=== PATIENT | male | born 1945 | race Caucasian/White ===

== ENCOUNTER 2018-03-16 13:00 | Inpatient (IN) | payer MEDICARE, BC ==
--- NOTE | 2018-03-16 07:27 | HP ---
NEUROSURGERY HISTORY AND PHYSICAL HISTORY OF PRESENT ILLNESS: This is a very pleasant 72-year-old male with past medical history of cervical fracture and spinal cord injury in [birth year] who reports to our office with left arm pain and weakness. The patient states that following his spinal cord injury, he was paraplegic for a few weeks. He regained full use of his right side to about 30% deficit on his left. The patient states that about a year ago, he had been having a lot of neck pain for which his primary care ordered a cervical MRI in 12/2016. The patient states that the neck pain got better. However, in the last month, he has had progressive pain, weakness and numbness in the left arm. The patient states that his arm feels like fire ants are biting him all over. The patient is left handed and unable to sign checks, cut his food, or button his shirt. Patient is in physical therapy; however, he does not think that it is helping much. He has also had STEVE with little benefit or relief. REVIEW OF SYSTEMS: A 10-point review of systems has been completed and is negative other than stated in the above HPI. PAST MEDICAL HISTORY: Kidney stones, GERD, hypertension. PAST SURGICAL HISTORY: Lumbar surgery L5-S1 by Dr. Barajas in 2002, C5 fracture , spinal cord injury in 1960, colon polyps 2014. FAMILY HISTORY: Father is , diagnosed with heart disease and stroke. Mother is , diagnosed with heart disease. Siblings are alive. SOCIAL HISTORY: Patient is a nonsmoker, drinks occasional alcohol. Does not use any other illicit drugs. Drinks caffeine on a daily basis. Retired and is single. MEDICATIONS: Metoprolol, omeprazole, Advil, simvastatin, hydrochlorothiazide, potassium, Omnigy, Lyrica, naproxen, hydrocodone/acetaminophen. ALLERGIES: No known drug allergies. PHYSICAL EXAMINATION: CONSTITUTIONAL: Patient is alert and oriented, nontoxic, alert and oriented to person, place, and time. HEENT: Head is normocephalic, atraumatic. Pupils are equal, round, reactive to light. Vision is intact. Hearing is intact. Moist mucous membranes. NECK: Soft, supple, no masses noted. Range of motion is intact, nonpainful. NEUROLOGIC: Patient is awake, alert, oriented to person, place and time. Memory attention, fund of knowledge and language are all normal. Cranial nerves II-XII are intact. RESPIRATORY: Regular work of breathing room air. CARDIAC: Regular rate and rhythm, normal S1, S2. NEUROLOGIC: Gait and station are normal. Motor exam: Left deltoid. Normal left biceps and normal left triceps 3+ to 4-/5, left wrist extension 4-/5, left finger extension 3+/5, left intraosseous 3-/5, improvement from prior exam. Sensory exam:sensory dysesrhesias in the arm are gone, touch appreciated in C5- T1. Reflex exam; reflexes are less in the left bicep, tricep, brachioradialis then the right. Positive Babinskis. IMAGING DATA: MRI old cord injury from C4-C5 and C5-C6 stenosis at C3-4, C5-6 with kyphosis, foraminal disease of the left C6-C7 as well as C7-T1, open foramen flexion and extension. X-rays C5-6 move with a bit of flexion and extension. ASSESSMENT AND PLAN: Cervical spinal disorder with myelopathy. Dr. Vallecillo has offered surgery. There is significant cord compression over 3 segments and foraminal disease around the left C7 nerve root. He has offered laminectomy C3- C7, ACDF through C3-C7 with posterior fusion at C3-C7. We have obtained consent and discussed the indications, risks, benefits, alternatives, and expected results from surgery. The risks discussed included, but were not limited to bleeding, infection, CSF leak, nerve damage, weakness, swallowing trouble, feeding tube placement, tracheal injury, esophageal injury, vocal cord injury, spinal cord injury, incontinence, paralysis, ventilator dependent, wheelchair dependent, stroke, loss of vision, carotid artery injury, jugular vein injury, hardware misplacement, cardiopulmonary complications, anesthesia complications, or . Long-term complications include but were not limited to hardware failure and degradation of surrounding discs. The patient states he understands these risks and is willing to proceed with surgery. MELISSA
[2018-03-16 14:05] VITALS: BMI 29.0
[2018-03-19] MEDS ORDERED: CEFAZOLIN/Water 2 GM/20 ML SYRINGE ONE (06:08)
[2018-03-19] MEDS ORDERED: Thrombin 5000 UNITS/5 ML VIAL ONE ×2 (06:17→14:30)
[2018-03-19] MEDS ORDERED: Bacitracin Zinc Ointment 30 gm TUBE ONE (06:17)
[2018-03-19] MEDS ORDERED: Bupivacaine HCl 0.5%/Epinephrine 1:200,000/PF 30 ml Vial ONE (06:17)
[2018-03-19] MEDS ORDERED: Sodium Chloride 0.9% 30 ML ONE (06:17)
[2018-03-19] MEDS ORDERED: Fentanyl 250 MCG/5 ML VIAL ONE (07:07)
[2018-03-19] MEDS ORDERED: Fentanyl 100 MCG/2 ML VIAL ONE ×6 (08:07→17:38)
[2018-03-19] MEDS ORDERED: PHENYLEPHRINE-NS 100 MCG/ML 10 ML SYRINGE ONE ×5 (08:19→16:24)
[2018-03-19] MEDS ORDERED: Rocuronium Bromide 50 MG/5 ML VIAL ONE ×3 (08:34→12:33)
[2018-03-19] MEDS ORDERED: SUGAMMADEX SODIUM 500 MG/5 ML VIAL ONE (12:33)
[2018-03-19] MEDS ORDERED: Ondansetron PF 4 MG/2 ML Vial ONE ×2 (14:30→17:54)
[2018-03-19] MEDS ORDERED: Glycopyrrolate 0.2 MG/ML 5 ML SYRINGE ONE (14:30)
[2018-03-19] MEDS ORDERED: Calcium Chloride 1 GM/10 ML Abboject SYRINGE ONE (14:30)
[2018-03-19] MEDS ORDERED: PROPOFOL 200 MG/20 ML VIAL ONE (14:30)
[2018-03-19] MEDS ORDERED: ePHEDrine/0.9% NaCl/PF SYRINGE 50 mg/10 ml ONE (14:30)
[2018-03-19] MEDS ORDERED: Lidocaine 1% PF 5 ML VIAL ONE (14:30)
[2018-03-19] MEDS ORDERED: CEFAZOLIN 1 GM VIAL ONE (16:29)
[2018-03-19] MEDS ORDERED: Bisacodyl 10 MG SUPP PR PRN (16:52)
[2018-03-19] MEDS ORDERED: Acetaminophen 325 MG TAB PO PRN (16:52)
[2018-03-19] MEDS ORDERED: Promethazine HCl 25 MG/ML VIAL IM PRN ×2 (16:52→17:20)
[2018-03-19] MEDS ORDERED: Ondansetron PF 4 MG/2 ML Vial IVP PRN (16:52)
[2018-03-19] MEDS ORDERED: Fleet Enema 133 ML BOT PR PRN (16:52)
[2018-03-19] MEDS ORDERED: Promethazine 25 MG TAB PO PRN (16:52)
[2018-03-19] MEDS ORDERED: diphenhydrAMINE 50 MG/ML VIAL IVP PRN (16:52)
[2018-03-19] MEDS ORDERED: Mag-Al 1200 mg/1200 mg/30 ML UDCUP PO PRN (16:52)
[2018-03-19] MEDS ORDERED: tiZANidine HCl 4 MG TAB PO PRN (16:52)
[2018-03-19] MEDS ORDERED: diphenhydrAMINE 25 MG CAP PO PRN (16:52)
[2018-03-19] MEDS ORDERED: Zolpidem Tartrate 5 MG TAB PO PRN (16:52)
[2018-03-19] MEDS ORDERED: Milk Of Magnesia 30 ML UDCUP PO PRN (16:52)
[2018-03-19] MEDS ORDERED: Acetaminophen 650 MG Suppository PR PRN (16:52)
[2018-03-19] MEDS ORDERED: Labetalol HCl 100 MG/20 ML VIAL ONE (17:15)
[2018-03-19] MEDS ORDERED: PACU-Morphine 4MG/ML VIAL SLOW IVP PRN (17:20)
[2018-03-19] MEDS ORDERED: Ondansetron HCl/PF 4 MG/2 ML Vial IVP PRN (17:20)
[2018-03-19] MEDS ORDERED: Promethazine HCl 25 MG/ML VIAL SLOW IVP PRN (17:20)
[2018-03-19] MEDS ORDERED: Labetalol HCl 100 MG/20 ML VIAL SLOW IVP PRN (17:30)
[2018-03-19] MEDS ORDERED: CEFAZOLIN/Water 2 GM/20 ML SYRINGE SLOW IVP SCH (18:00)
[2018-03-19] MEDS: Sodium Chloride 0.9% 1,000 ML IV SCH (18:51)
[2018-03-19] MEDS: Acetaminophen/Codeine 30-300mg Tablet PO PRN (20:39)
[2018-03-19] MEDS: Cyclobenzaprine 10 MG TAB PO PRN (20:39)
[2018-03-19] MEDS: Ibuprofen 800 MG TAB PO PRN (20:39)
--- NOTE | 2018-03-19 20:55 | OP ---
DATE OF PROCEDURE: 03/19/2018 SURGEON: Timothy Vallecillo MD LABORATORY ASSOCIATE: Jaelyn Jaime PA-C PREOPERATIVE INDICATION: Prevent further neurological deterioration. PREOPERATIVE DIAGNOSES: Cervical spondylitic myelopathy, multilevel cervical intervertebral disk dis ease, and spinal stenosis with T2 signal change in the cord. POSTOPERATIVE DIAGNOSES: Cervical spondylitic myelopathy, multilevel cervical intervertebral disk d isease, and spinal stenosis with T2 signal change in the cord. PROCEDURES PERFORMED: 1. Posterior decompressive laminectomy with medial facetectomy and foraminotomy at C3, C4, C5, C6, a nd C7. 2. Anterior cervical diskectomy; intervertebral arthrodesis; placement of intervertebral biomechanic al device and anterior cervical plating at C3-C4, C4-C5, C5-C6, C6-C7; local morselized autograft; mo rselized allograft; and operating microscope. 3. Posterolateral arthrodesis with lateral mass screw and dar instrumentation at C3-C4, C4-C5, C5-C6 , and C6-C7; local morselized autograft; morselized allograft. PREOPERATIVE MEDICATION: Ancef 2 grams IV. The drain was number 2. The drain type was 10-Australian Rodrigo. DESCRIPTION OF PROCEDURE: OPERATION #1: The patient was brought to the operating room. Keeping the neck in normal anatomic al ignment, general endotracheal anesthesia was induced. Chavira effie headholder was attached to the patient's head and the patient was carefully rolled into the prone position on gel-filled chest roll s. The head was immobilized with a Chavira effie attachment for the operating table and a lateral fluoro radiograph was used to plan our incision. Hair was removed from the back of the head and neck with electric clippers. We marked out our incision. The neck was sterilely prepped and draped. We opened with a 10-blade knife and controlled bleeding with bipolar and monopolar cautery. We used mo nopolar cautery to dissect through subcutaneous tissues to the ligamentum nuchae. We incised the fas alfredo in the midline and we reflected paraspinal muscles off the spinous process and lamina of C2, C3, C4, C5, C6, and C7. We took a lateral fluoro radiograph to confirm the levels upon which we were ope rating. We then brought a high-speed drill into the field and then using a jenifer bit, we thinned the lamina e from C3 to C7 bilaterally. Using a 1-mm Kerrison rongeur, we performed laminotomy on either side. When we were done, we removed the lamina and spinous process of C3, C4, C5, and C6 as a single unit. We controlled epidural bleeding with gentle bipolar cautery. We then turned our attention to the s uperior portion of C7. Here, we used Kerrison rongeurs to fashion laminectomy of the superior 7 mm o f the lamina. We then widened our laminectomy defect at each of the interspaces by performing medial facetectomies and small foraminotomies over the nerves. We irrigated it copiously with bacitracin i rrigation. We chose entry points for our lateral mass screws and we drilled out our entry points. W e aimed a high-speed drill superiorly and laterally in the lateral mass at C3, C4, C5, C6, and C7 and drilled airline pilot/first officer holes. We placed 14-mm lateral mass screws into the lateral masses. We then closed t he wound in anatomic layers and we applied a sterile dressing. OPERATION #2: With the completion of our decompression and lateral mass screw placement, we turned o ur attention to anterior approach to the cervical spine. We gently loosened the Chavira effie head inspector and center marker from the table. We carefully rolled the patient to supine position on another operating bed w ith his head supported by gel-filled donut-shaped headrest. A lateral fluoro radiograph was used to plan our anterior incision. The neck was sterilely prepped and draped. We opened our right-sided ne ck incision with a 10-blade knife and controlled bleeding with bipolar cautery. We dissected sharply to the platysma. We carried our dissection through the muscle and medial to the sternocleidomastoid and lateral to the trachea and esophagus. We arrived at the prevertebral space. We placed a marker at C4-C5 and took a lateral fluoro radiograph to confirm the levels upon which we were operating. Anshul e then elevated the longus colli muscles off the anterior surface of the spine from C3 to C7. We [place] self-retaining retractors at C4 and distraction pins at C3 and C5. We distracted across both of the intervening interspaces. We incised the interspaces using a 15-blade knife and removed disk cont ents using curettes and rongeurs. The operating microscope was brought into the field. Under microscopic magnification using microsurgical techniques, we removed the remainder of the inter vertebral disk. At these two interspaces, we needed high-speed drill to drill out the majority of th e calcified disk. As we approached the posterior longitudinal ligament, we saw osteophytes beneath o ur drill. We used Kerrison rongeurs to remove those posterior osteophytes. We accessed the ventral epidural space with a micro curette and removed the posterior longitudinal ligament and all the poste rior osteophytes across the entire interspace from one nerve root all the way to the other nerve root at C3-C4 and C4-C5. We prepared the endplates for grafting with a bone rasp and measured the height of each interspace to 6 mm. Two separate 6-mm PEEK graft were brought into the field. These were l oaded with demineralized bone matrix and morselized autograft. The autograft was obtained from our l aminectomy bone, which was carefully morcellized on the back table after all soft tissue was removed. The morselized bone was added to demineralized bone matrix to form our fusion substrate and the sub strate packed into the PEEK grafts. The PEEK grafts were advanced into the interspaces under radiogr aphic guidance to the appropriate depth. We then removed our distraction pin from C3 and moved our l ateral retractors to C6. We placed a distraction pin at C7 and distracted across the C5-C6 and C6-C7 interspaces. In a similar fashion, we incised the interspaces and removed disk contents using curet rush and rongeurs. We continued under the operating microscope to remove disk material until we accessed the ventral epi dural space with a micro curette. We removed the posterior longitudinal ligament and posterior osteo phytes across the entire interspace from one nerve root all the way to the other nerve root, both at C5-C6 and again at C6-C7. Here, the left-sided nerve roots were more compressed than the right, but we got generous decompression on both sides. We prepared the endplates for grafting using curettes a nd measured the height of the interspace to 7 mm at C5-C6 and 6 mm at C6-C7. The appropriately sized PEEK grafts were brought into the field. They were loaded with demineralized bone matrix and morsel ized autograft and advanced into these two interspaces under radiographic guidance to the appropriate depth. Lateral fluoro radiographs confirmed adequate position of our interbody grafts. We then rem sheree our distraction pins and took the operating microscope out of the field. A 60-mm anterior cervi lavon plate was brought into the field. We shaped the vertebral body to accept the plate by removing o steophytes. We drilled airline pilot/first officer holes through the plate into the vertebral segments from C3 to C7. We drilled 12-mm airline pilot/first officer holes and affixed the plate using 14-mm screws. We used fixed-angled screws at C 7 and variable-angle screws at C3, C4, C5, and C6. We engaged the locking mechanism over each of the 10 screws. AP and lateral fluoro radiographs confirmed adequate positioning of our instrumentation. We irrigated copiously with bacitracin irrigation. We tunneled a drain under the platysma inferior ly through a separate stab incision. We closed the wound in anatomic layers. We applied sterile polly ssing. OPERATION #3: With the anterior operation complete and a sterile dressing applied, we transferred th e patient back to the prone position. The head was immobilized in the [place] effie headholder in the [place] attachment for the operating table. The patient was carefully positioned on gel-filled chest rolls and the previous cervical incision was located. The neck was sterilely prepped and drape d and we re-opened our previous incision. We carefully removed all the suture material that we had t o cut and self-retaining retractors were placed. We found our lateral mass screw heads in the positi on where they have been left. We brought rods down in the screw heads. Using a dar template, we jan sured the appropriate length of the rods and we cut them to length. We bent them to engage each of t he screw heads and we placed them into the screw heads. We tightened caps down using a torque-counte r-torque mechanism to ensure adequate tightness. We then turned our attention to decortication and a rthrodesis. Using the high-speed drill and a cutting bit, we decorticated the lateral aspect of the lateral rebeca s from C3 to C7. Over the decorticated bone with a demineralized bone matrix and morselized autograf t as our posterolateral fusion substrate at C3-C4, C4-C5, C5-C6, and C6-C7. We irrigated with bacitr acin irrigation. We treated this wound with vancomycin powder. We closed the wound in anatomic laye rs and we applied a sterile dressing. This was a clean case and no contamination.
[2018-03-20] MEDS: CEFAZOLIN/Water 2 GM/20 ML SYRINGE SLOW IVP SCH ×3 (00:29→15:51)
[2018-03-20] MEDS ORDERED: Dexamethasone 10 MG/ML VIAL SLOW IVP SCH (06:30)
[2018-03-20] MEDS: Cyclobenzaprine 10 MG TAB PO PRN (06:56)
[2018-03-20] MEDS: Acetaminophen/Codeine 30-300mg Tablet PO PRN ×3 (06:56→21:22)
[2018-03-20] MEDS: Ibuprofen 800 MG TAB PO PRN ×2 (06:57→21:21)
[2018-03-20] MEDS: Tamsulosin HCl 0.4 MG CAP PO SCH (06:57)
[2018-03-20] MEDS: Sodium Chloride 0.9% 1,000 ML IV SCH ×2 (07:04→23:59)
--- NOTE | 2018-03-20 07:08 | PRG ---
DATE OF SERVICE: 03/20/2018 Mr. Bruno is 1 day out from a posterior then anterior then posterior decompression fusion in the center of the cervical spine. We decompressed circumferentially. This was a long case and he is 1 day out this morning. He has been afebrile. His saturations are in the 94% range. His blood pressures have been in the 90 s to 140s. Mr. Bruno still has significant weakness in the arms as he had during his evaluation Kelvin befo re surgery. His hand intrinsics on the left are 3+ to 4-, his finger extensors are the same. The tr iceps seem to have improved to 4/5. There is normal function of the lower extremities. Drain output has been significant. We will leave the drains in place at least today. Mr. Bruno's major complaint this morning is trouble swallowing. He has a sore throat and then s ome of the secretions that is having are difficult to clear. This is understandable given the length of the anterior operation and the posterior surgery, anesthetic for that number of hours of the endo tracheal tube, complicated by anterior cervical retractor results in some dysphagia. Then give him a little steroid to help with any swelling and will leave the drain in place to make sure that no flui d collection compromising the swallowing and we will give him Chloraseptic for sore throat. This cou ld be much easier for him to breathe and swallow without the collar. He does not need it when he is in bed, showering or eating. When he is up and around to work in physical therapy, I think it is gladis te reasonable to have the collar on. We will have him use Voldyne incentive spirometer to help clean the lungs and get the oxygen saturation up and we will start physical therapy today.
[2018-03-20] MEDS ORDERED: Chloraseptic Spray 180 ml Bottle PO PRN (07:33)
[2018-03-20] MEDS: predniSONE 5 MG TAB PO SCH (09:06)
[2018-03-20] MEDS: Multivit, Therapeutic 1 TAB PO SCH (09:07)
[2018-03-20] MEDS: Simvastatin 5 MG TAB PO SCH (09:07)
[2018-03-20] MEDS: Hydrochlorothiazide 25 MG TAB PO SCH (09:07)
[2018-03-20] MEDS: Pantoprazole 40 MG VIAL IVP SCH ×2 (09:08→21:21)
[2018-03-20] MEDS: Dexamethasone 1 MG TAB PO SCH ×3 (13:17→21:21)
[2018-03-21] MEDS: CEFAZOLIN/Water 2 GM/20 ML SYRINGE SLOW IVP SCH ×4 (00:57→23:55)
[2018-03-21] MEDS: Tamsulosin HCl 0.4 MG CAP PO SCH (06:18)
[2018-03-21] MEDS: Ibuprofen 800 MG TAB PO PRN ×2 (06:19→15:56)
[2018-03-21] MEDS: Acetaminophen/Codeine 30-300mg Tablet PO PRN ×3 (06:23→21:21)
[2018-03-21] MEDS: Sodium Chloride 0.9% 1,000 ML IV SCH (07:53)
[2018-03-21] MEDS: Hydrochlorothiazide 25 MG TAB PO SCH (08:37)
[2018-03-21] MEDS: Simvastatin 5 MG TAB PO SCH (08:37)
[2018-03-21] MEDS: Pantoprazole 40 MG VIAL IVP SCH ×2 (08:37→21:22)
[2018-03-21] MEDS: Dexamethasone 1 MG TAB PO SCH ×4 (08:38→21:21)
[2018-03-21] MEDS: predniSONE 5 MG TAB PO SCH (08:38)
[2018-03-21] MEDS: Multivit, Therapeutic 1 TAB PO SCH (08:39)
[2018-03-22] MEDS: Sodium Chloride 0.9% 1,000 ML IV SCH (01:05)
[2018-03-22] MEDS: Tamsulosin HCl 0.4 MG CAP PO SCH (06:46)
[2018-03-22] MEDS: Ibuprofen 800 MG TAB PO PRN (06:46)
--- NOTE | 2018-03-22 07:52 | PRG ---
DATE OF SERVICE: 03/22/2018 Yesterday we decided to leave Mr. Bruno's posterior drain in and remove the anterior drain due t o drainage out of the posterior incision. It has not collected much overnight. His other vital sign s have been stable. His neurological examination is improved since before the operation. The dyspha gisell and hoarseness he had after surgery responded quite nicely to one dose of IV Decadron. He is con tinuing with some oral medicine as well. He would like to get home. Mr. Bruno is safe for his activities of daily living. We are going to remove the posterior drai n. We will watch him until lunch time. If there is a significant amount of drainage out of the post erior incision we will send him out on 1 week of antibiotic therapy. We will give him prescriptions for pain medication and a muscle relaxant. We will give him Dr. Root's name in [place] for p rostate evaluation due to some obstructive type retention that improved with Flomax. Dr. Root a nd he can discuss whether Flomax is necessary on an ongoing fashion. Follow up arrangements have been made. We went over activity restrictions and wound care.
[2018-03-22] MEDS ORDERED: Cephalexin 250 MG/5 ML Oral Suspension PO SCH (09:00)
[2018-03-22] MEDS: Multivit, Therapeutic 1 TAB PO SCH (09:24)
[2018-03-22] MEDS: Simvastatin 5 MG TAB PO SCH (09:24)
[2018-03-22] MEDS: CEFAZOLIN/Water 2 GM/20 ML SYRINGE SLOW IVP SCH (09:24)
[2018-03-22] MEDS: Dexamethasone 1 MG TAB PO SCH ×2 (09:24→12:59)
[2018-03-22] MEDS: Hydrochlorothiazide 25 MG TAB PO SCH (09:25)
[2018-03-22] MEDS: predniSONE 5 MG TAB PO SCH (09:25)
[2018-03-22] MEDS: Cephalexin 250 MG CAP PO SCH ×2 (09:25→12:59)
[2018-03-22] MEDS: Pantoprazole 40 MG VIAL IVP SCH (10:14)
[2018-03-22 10:42] VITALS: BP 134/83; TEMP 97.7
== END 2018-03-22 13:10 | disposition home or self-care (01) | DRG 455 ==
LOC: SURG A 03-19 05:46 → SURG B 03-19 18:27
PROVIDERS: ADMIT Neurological Surgery; ATTEND Neurological Surgery
PROC: 0RG20A0 Fusion of 2 or more Cervical Vertebral Joints with Interbody Fusion Device, Anterior Approach, Anterior Column, Open Approach (ICD-10-PCS; principal; 2018-03-19)
PROC: 0RG1071 Fusion of Cervical Vertebral Joint with Autologous Tissue Substitute, Posterior Approach, Posterior Column, Open Approach (ICD-10-PCS; 2018-03-19)
DX: M47.12 Other spondylosis with myelopathy, cervical region (principal); R07.0 Pain in throat; I10 Essential (primary) hypertension; E78.5 Hyperlipidemia, unspecified
CPT/HCPCS: 76001; 80048; 85027; 85610; 85730; C1713; C1768; C1776; C9113; G8978-GP-CJ; G8979-GP-CI; G8987-GO-CJ; G8988-GO-CI; J0670; J0690; J1100; J2001; J2405; J2704; J3010; J3370; J3490; J8540

== ENCOUNTER 2018-03-16 13:42 | Outpatient (CLI) | payer MEDICARE, BC ==
[2018-03-16 15:05] LABS: Hemoglobin 14.4 g/dL (14.0-18.0); Mean Corpuscular HGB CONC 34.1 g/dL (32.0-36.0); Mean Corpuscular Hemoglobin 33.9 pg (27.0-31.0); Mean Corpuscular Volume 99.5 fL (78.0-98.0); Mean Platelet Volume 9.2 fL (7.4-10.4); Platelet Count 218 thou/uL (130-400); RBC Distribution Width 11.7 % (11.5-14.5); Red Blood Cell (RBC) Count 4.23 mill/uL (4.70-6.10); White Blood Cell (WBC) Count 8.2 thou/uL (4.8-10.8)
[2018-03-16 15:11] LABS: PTT 26.8 SEC (22.9-36.1); Prothrombin Time 12.9 SEC (12.0-14.7)
[2018-03-16 15:27] LABS: Anion Gap 16 mmol/L (10-20); BUN (Urea Nitrogen) 27 mg/dL (8.4-25.7); Calc. Creatinine Clearance 0 mL/min (70-130); Calcium 9.4 mg/dL (7.8-10.44); Carbon Dioxide 21 mmol/L (23-31); Chloride 105 mmol/L (98-107); Estimated GFR-MDRD 47; Glucose 194 mg/dL (83-110); Sodium 138 mmol/L (136-145)
== END 2018-03-16 13:43 | disposition home or self-care (01) ==
LOC: LABBT 13:42
PROVIDERS: ATTEND Neurological Surgery
DX: Z01.812 Encounter for preprocedural laboratory examination (principal); M50.00 Cervical disc disorder with myelopathy, unspecified cervical region
CPT/HCPCS: 80048; 85027; 85610; 85730

== ENCOUNTER 2020-11-17 14:15 | Outpatient (CLI) | payer MEDICARE, BC ==
[2020-11-17 15:17] LABS: Hemoglobin 13.2 g/dL (13.5-17.5); Mean Corpuscular HGB CONC 34.6 g/dL (32.0-36.0); Mean Corpuscular Volume 92.5 fl (81.2-95.1); Mean Platelet Volume 12.8 fl (7.4-10.4); Platelet Count 153 10x3/uL (150-450); RBC Distribution Width 11.8 % (11.5-14.5); Red Blood Cell (RBC) Count 4.13 10x6/uL (4.32-5.72); White Blood Cell (WBC) Count 8.3 10x3/uL (3.5-10.5)
[2020-11-17 15:35] LABS: Anion Gap 18 mmol/L (10-20); BUN (Urea Nitrogen) 36 mg/dL (8.4-25.7); Calc. Creatinine Clearance 0 mL/min (70-130); Calcium 9.6 mg/dL (7.8-10.44); Carbon Dioxide 23 mmol/L (23-31); Chloride 102 mmol/L (98-107); Glucose 97 mg/dL (83-110); Potassium 3.8 mmol/L (3.5-5.1); Sodium 139 mmol/L (136-145)
[2020-11-17 15:41] LABS: PTT 24.7 sec (22.0-33.0); Prothrombin Time 10.6 sec (9.5-12.1)
== END 2020-11-17 14:16 | disposition home or self-care (01) ==
LOC: LABBT 14:15
PROVIDERS: ATTEND Neurological Surgery
DX: Z01.818 Encounter for other preprocedural examination (principal); M48.061 Spinal stenosis, lumbar region without neurogenic claudication
CPT/HCPCS: 80048; 85027; 85610; 85730; 93005; 93010

== ENCOUNTER 2020-11-20 05:50 | Inpatient (IN) | payer MEDICARE, BC ==
[2020-11-19 09:04] VITALS: BMI 28.1
[2020-11-20] MEDS ORDERED: EPINEPHrine 1 MG/ML AMP ONE (06:10)
[2020-11-20] MEDS ORDERED: Thrombin 5000 UNITS/5 ML VIAL ONE (06:10)
[2020-11-20] MEDS ORDERED: Bupivacaine PF 0.5% 30 ML VIAL ONE (06:10)
[2020-11-20] MEDS ORDERED: Fentanyl 250 MCG/5 ML VIAL ONE (06:40)
[2020-11-20] MEDS ORDERED: Dexamethasone 20 MG/5 ML VIAL ONE (07:08)
[2020-11-20] MEDS ORDERED: Ondansetron PF 4 MG/2 ML Vial ONE (07:08)
[2020-11-20] MEDS ORDERED: ePHEDrine Sulfate 50 MG/10 ML VIAL ONE (07:08)
[2020-11-20] MEDS ORDERED: Rocuronium Bromide 10 MG/ML (10ML VIAL) ONE (07:08)
[2020-11-20] MEDS ORDERED: PROPOFOL 200 MG/20 ML VIAL ONE (07:08)
[2020-11-20] MEDS ORDERED: Lidocaine 1% PF 5 ML VIAL ONE (07:08)
[2020-11-20] MEDS ORDERED: Glycopyrrolate 0.2 MG/ML 5 ML SYRINGE ONE (07:08)
[2020-11-20] MEDS ORDERED: PHENYLEPHRINE-NS 100 MCG/ML 10 ML SYRINGE ONE (07:08)
[2020-11-20] MEDS ORDERED: Neomycin-Polymyxin 1 ML AMP ONE (07:36)
[2020-11-20] MEDS ORDERED: Promethazine HCl 25 MG/ML VIAL IM PRN (09:37)
[2020-11-20] MEDS ORDERED: Ondansetron HCl/PF 4 MG/2 ML Vial IVP PRN (09:37)
[2020-11-20] MEDS ORDERED: Meperidine HCl/PF 25 MG/ML VIAL SLOW IVP PRN (09:37)
[2020-11-20] MEDS ORDERED: Promethazine HCl 25 MG/ML VIAL SLOW IVP PRN (09:37)
[2020-11-20] MEDS ORDERED: diphenhydrAMINE 25 MG CAP PO PRN (12:02)
[2020-11-20] MEDS ORDERED: Acetaminophen/Codeine 30-300mg Tablet PO PRN ×2 (12:02)
[2020-11-20] MEDS ORDERED: HYDROcodone/Acetaminophen 10/325 mg Tablet PO PRN ×2 (12:02)
[2020-11-20] MEDS ORDERED: Morphine 2 MG/ML VIAL SLOW IVP PRN (12:02)
[2020-11-20] MEDS ORDERED: diphenhydrAMINE 50 MG/ML VIAL IVP PRN (12:02)
[2020-11-20] MEDS ORDERED: Promethazine HCl 12.5 MG SUPP PR PRN (12:02)
[2020-11-20] MEDS ORDERED: Fleet Enema 133 ML BOT PR PRN (12:02)
[2020-11-20] MEDS ORDERED: Promethazine 25 MG TAB PO PRN (12:02)
[2020-11-20] MEDS ORDERED: Bisacodyl 10 MG SUPP PR PRN (12:02)
[2020-11-20] MEDS ORDERED: Milk Of Magnesia 30 ML UDCUP PO PRN (12:02)
[2020-11-20] MEDS ORDERED: Fentanyl 100 MCG/2 ML VIAL ONE (13:12)
[2020-11-20] MEDS: tiZANidine HCl 4 MG TAB PO PRN ×2 (15:23→20:53)
[2020-11-20] MEDS: CEFAZOLIN 2 GM in Premix Bag 1 BAG IVPB SCH ×2 (15:23→20:56)
[2020-11-20] MEDS: Scopolamine 1.5 mg/72 hour Patch TD SCH (15:24)
[2020-11-20] MEDS: Sodium Chloride 0.9% 1,000 ML IV SCH ×2 (16:02→18:47)
[2020-11-20] MEDS ORDERED: Cepastat Lozenges 1 LOZ PO PRN (16:25)
[2020-11-20] MEDS: Morphine 4 MG/ML VIAL SLOW IVP PRN (18:36)
[2020-11-20] MEDS: Ondansetron PF 4 MG/2 ML Vial IVP PRN (18:44)
[2020-11-20] MEDS ORDERED: hydrALAZINE 20 MG/ML VIAL ONE (19:19)
[2020-11-20] MEDS: Promethazine HCl 25 MG/ML VIAL IM PRN (22:03)
[2020-11-20] MEDS: Simethicone Chewable 80 MG TAB PO PRN (22:28)
[2020-11-21] MEDS: Promethazine HCl 25 MG/ML VIAL IM PRN ×2 (02:27→05:54)
[2020-11-21] MEDS: tiZANidine HCl 4 MG TAB PO PRN ×3 (02:51→23:00)
[2020-11-21] MEDS ORDERED: Ondansetron PF 4 MG/2 ML Vial IVP PRN (03:09)
[2020-11-21] MEDS: Ondansetron PF 4 MG/2 ML Vial IVP PRN (03:25)
[2020-11-21] MEDS: Morphine 4 MG/ML VIAL SLOW IVP PRN ×2 (03:27→05:53)
[2020-11-21 05:45] LABS: Anion Gap 15 mmol/L (10-20); BUN (Urea Nitrogen) 33 mg/dL (8.4-25.7); Calc. Creatinine Clearance 41 mL/min (70-130); Calcium 8.5 mg/dL (7.8-10.44); Carbon Dioxide 23 mmol/L (23-31); Chloride 106 mmol/L (98-107); Glucose 130 mg/dL (83-110); Potassium 3.6 mmol/L (3.5-5.1); Sodium 140 mmol/L (136-145)
[2020-11-21] MEDS: CEFAZOLIN 2 GM in Premix Bag 1 BAG IVPB SCH (05:54)
[2020-11-21] MEDS: Tamsulosin HCl 0.4 MG CAP PO SCH ×2 (05:54→09:28)
[2020-11-21] MEDS: Sodium Chloride 0.9% 1,000 ML IV SCH ×4 (07:49→19:50)
[2020-11-21] MEDS ORDERED: Hydrochlorothiazide 25 MG TAB PO SCH (09:00)
[2020-11-21] MEDS ORDERED: Famotidine 20 MG TAB PO SCH (09:00)
[2020-11-21] MEDS: Amlodipine 5 MG TAB PO SCH (09:28)
[2020-11-21] MEDS: Potassium Chloride 10 MEQ TAB PO SCH (09:28)
[2020-11-21] MEDS: Simvastatin 10 MG TAB PO SCH (09:28)
[2020-11-21] MEDS: Pantoprazole 40 MG VIAL IVP SCH (12:19)
[2020-11-21] MEDS ORDERED: Methylnaltrexone 12 MG/0.6 ML VIAL SC SCH (13:00)
[2020-11-21] MEDS: Acetaminophen 500 MG TAB PO PRN ×2 (17:28→23:00)
[2020-11-22] MEDS: tiZANidine HCl 4 MG TAB PO PRN ×2 (05:33→18:50)
[2020-11-22] MEDS: Tamsulosin HCl 0.4 MG CAP PO SCH (05:33)
[2020-11-22] MEDS: Acetaminophen 500 MG TAB PO PRN ×2 (05:33→18:50)
[2020-11-22 05:54] LABS: #Lymphocytes 1.3 thou/uL (1.20-3.40); #Monocytes 2.1 thou/uL (0.11-0.59); %Basophils 0.2 % (0.0-1.0); %Eosinophils 0.1 % (0.0-10.0); %Lymphocytes 7.8 % (21.0-51.0); %Monocytes 12.5 % (0.0-10.0); %Neutrophils 79.4 % (42.0-75.0); Hemoglobin 12.2 g/dL (14.0-18.0); Mean Corpuscular HGB CONC 33.3 g/dL (32.0-36.0); Mean Corpuscular Hemoglobin 32.6 pg (27.0-31.0); Mean Corpuscular Volume 98.1 fL (78.0-98.0); Mean Platelet Volume 11.1 fL (7.4-10.4); Platelet Count 136 thou/uL (130-400); RBC Distribution Width 11.5 % (11.5-14.5); Red Blood Cell (RBC) Count 3.73 mill/uL (4.70-6.10); White Blood Cell (WBC) Count 16.4 thou/uL (4.8-10.8)
[2020-11-22 06:12] LABS: Phosphorus 2.3 mg/dL (2.3-4.7)
[2020-11-22 06:16] LABS: Anion Gap 16 mmol/L (10-20); BUN (Urea Nitrogen) 28 mg/dL (8.4-25.7); Calc. Creatinine Clearance 45 mL/min (70-130); Calcium 8.4 mg/dL (7.8-10.44); Carbon Dioxide 24 mmol/L (23-31); Chloride 107 mmol/L (98-107); Glucose 111 mg/dL (83-110); Magnesium 1.5 mg/dL (1.6-2.6); Potassium 3.5 mmol/L (3.5-5.1); Sodium 143 mmol/L (136-145)
[2020-11-22] MEDS: Pantoprazole 40 MG VIAL IVP SCH (10:09)
[2020-11-22] MEDS: Potassium Chloride 10 MEQ TAB PO SCH (10:10)
[2020-11-22] MEDS: Amlodipine 5 MG TAB PO SCH (10:11)
[2020-11-22] MEDS: Sodium Chloride 0.9% 1,000 ML IV SCH (10:12)
[2020-11-22] MEDS ORDERED: Metoclopramide HCl 10 MG/2 ML VIAL IVP PRN (13:27)
[2020-11-22] MEDS ORDERED: Methylnaltrexone 12 MG/0.6 ML VIAL SC SCH (13:30)
[2020-11-22] MEDS: hydrALAZINE 20 MG/ML VIAL SLOW IVP PRN ×2 (14:55→18:58)
[2020-11-22] MEDS: Simvastatin 10 MG TAB PO SCH (14:56)
[2020-11-22] MEDS: NS 0.9% w/ 20 MEQ KCL 1,000 ML/1,000 ML BAG IV SCH (14:59)
[2020-11-22] MEDS ORDERED: Magnesium 2 GM/50 ML 2 GM in Premix Bag 1 BAG IVPB SCH (15:00)
[2020-11-22 15:30] LABS: Bilirubin Negative (Negative); Clarity Clear (Clear); Glucose, Urine (Dipstick) Normal (Negative); Ketone, Urine 40 mg/dL (Negative); Leukocyte Negative Leu/uL (Negative); Nitrite Negative (Negative); Protein, Urine (Dipstick) 300 mg/dL (Neg-Trace); Squamous Epithelial None Seen HPF (0-3); Urobilinogen Normal mg/dL (Less than 2); pH, Urine 6.5 (5.0-9.0)
[2020-11-22 15:31] LABS: Bacteria/HPF 1+ HPF (None Seen); Blood, Urine 2+ (Negative)
[2020-11-23] MEDS: tiZANidine HCl 4 MG TAB PO PRN ×2 (00:07→06:04)
[2020-11-23] MEDS: Acetaminophen 500 MG TAB PO PRN ×2 (00:07→06:04)
[2020-11-23] MEDS: NS 0.9% w/ 20 MEQ KCL 1,000 ML/1,000 ML BAG IV SCH ×4 (00:23→18:39)
[2020-11-23] MEDS: Tamsulosin HCl 0.4 MG CAP PO SCH (06:03)
[2020-11-23 06:06] LABS: Anion Gap 17 mmol/L (10-20); BUN (Urea Nitrogen) 33 mg/dL (8.4-25.7); Calc. Creatinine Clearance 44 mL/min (70-130); Calcium 8.8 mg/dL (7.8-10.44); Carbon Dioxide 19 mmol/L (23-31); Chloride 110 mmol/L (98-107); Glucose 137 mg/dL (83-110); Potassium 3.4 mmol/L (3.5-5.1); Sodium 143 mmol/L (136-145)
[2020-11-23] MEDS: hydrALAZINE 20 MG/ML VIAL SLOW IVP PRN (06:28)
[2020-11-23] MEDS: Amlodipine 5 MG TAB PO SCH (09:09)
[2020-11-23] MEDS: Potassium Chloride 10 MEQ TAB PO SCH (09:10)
[2020-11-23] MEDS: Simvastatin 10 MG TAB PO SCH (09:11)
[2020-11-23] MEDS: Pantoprazole 40 MG VIAL IVP SCH (09:11)
[2020-11-23] MEDS ORDERED: Iopamidol-370 76% 500 ML 1 ML ONE (09:29)
[2020-11-23] MEDS: Scopolamine 1.5 mg/72 hour Patch TD SCH (12:22)
[2020-11-23] MEDS: Promethazine HCl 25 MG/ML VIAL IM PRN (21:25)
[2020-11-24] MEDS: NS 0.9% w/ 20 MEQ KCL 1,000 ML/1,000 ML BAG IV SCH ×2 (03:32→17:33)
[2020-11-24] MEDS: hydrALAZINE 20 MG/ML VIAL SLOW IVP PRN ×2 (03:39→21:35)
[2020-11-24] MEDS: Tamsulosin HCl 0.4 MG CAP PO SCH (06:04)
[2020-11-24 06:17] LABS: Anion Gap 19 mmol/L (10-20); BUN (Urea Nitrogen) 40 mg/dL (8.4-25.7); Band 4 % (5-11); Calc. Creatinine Clearance 38 mL/min (70-130); Calcium 8.6 mg/dL (7.8-10.44); Carbon Dioxide 16 mmol/L (23-31); Chloride 116 mmol/L (98-107); Glucose 119 mg/dL (83-110); Hemoglobin 10.8 g/dL (14.0-18.0); Lymphocytes 11 % (21-51); MDiff Complete? YES; Magnesium 2.3 mg/dL (1.6-2.6); Mean Corpuscular HGB CONC 34.3 g/dL (32.0-36.0); Mean Corpuscular Hemoglobin 34.1 pg (27.0-31.0); Mean Corpuscular Volume 99.2 fL (78.0-98.0); Mean Platelet Volume 10.4 fL (7.4-10.4); Monocytes 24 % (0-10); Myelocyte 1 % (0-0); Neutrophil 60 % (42-75); Platelet Count 148 thou/uL (130-400); Platelet Morphology Comment Appears Adequate; Potassium 3.5 mmol/L (3.5-5.1); RBC Distribution Width 11.4 % (11.5-14.5); Red Blood Cell (RBC) Count 3.17 mill/uL (4.70-6.10); Sodium 147 mmol/L (136-145); White Blood Cell (WBC) Count 8.5 thou/uL (4.8-10.8)
[2020-11-24] MEDS: Amlodipine 5 MG TAB PO SCH (08:32)
[2020-11-24] MEDS: Potassium Chloride 10 MEQ TAB PO SCH (08:32)
[2020-11-24] MEDS: Pantoprazole 40 MG VIAL IVP SCH (08:33)
[2020-11-24] MEDS ORDERED: Potassium Phosphate 15 MMOL in Sodium Chloride 0.9% 250 ML 250 ML IVPB SCH (14:15)
[2020-11-24] MEDS ORDERED: Sodium Bicarbonate 100 MEQ in Dextrose 5% in Water 1,000 ML IV SCH (14:15)
[2020-11-24] MEDS: Simvastatin 10 MG TAB PO SCH (15:03)
[2020-11-24 15:21] LABS: Creatinine, Urine 145.76 mg/dL (63-166)
[2020-11-24 21:36] LABS: Anion Gap 17 mmol/L (10-20); BUN (Urea Nitrogen) 40 mg/dL (8.4-25.7); Calc. Creatinine Clearance 40 mL/min (70-130); Calcium 8.3 mg/dL (7.8-10.44); Carbon Dioxide 20 mmol/L (23-31); Chloride 115 mmol/L (98-107); Glucose 129 mg/dL (83-110); Potassium 3.5 mmol/L (3.5-5.1); Sodium 148 mmol/L (136-145)
[2020-11-25] MEDS: Tamsulosin HCl 0.4 MG CAP PO SCH (05:43)
[2020-11-25 07:02] LABS: Anion Gap 17 mmol/L (10-20); BUN (Urea Nitrogen) 41 mg/dL (8.4-25.7); Calc. Creatinine Clearance 39 mL/min (70-130); Calcium 8.8 mg/dL (7.8-10.44); Carbon Dioxide 21 mmol/L (23-31); Chloride 116 mmol/L (98-107); Glucose 121 mg/dL (83-110); Potassium 3.3 mmol/L (3.5-5.1); Sodium 151 mmol/L (136-145)
[2020-11-25 07:07] LABS: Albumin 3.2 g/dL (3.4-4.8); Phosphorus 3.4 mg/dL (2.3-4.7)
[2020-11-25] MEDS: Sodium Bicarbonate 50 MEQ in Dextrose 5% in Water 1,000 ML IV SCH (08:09)
[2020-11-25] MEDS: Amlodipine 5 MG TAB PO SCH (08:11)
[2020-11-25] MEDS: Pantoprazole 40 MG VIAL IVP SCH (08:15)
[2020-11-25] MEDS: Potassium Chloride 20 MEQ in Premix Bag 1 BAG IVPB SCH ×3 (09:27→12:47)
[2020-11-25] MEDS ORDERED: Lactated Ringer's 1,000 ML IV SCH (10:00)
[2020-11-25] MEDS: Simvastatin 10 MG TAB PO SCH (10:39)
[2020-11-25] MEDS: Potassium Chloride 10 MEQ TAB PO SCH (11:45)
[2020-11-25 15:38] LABS: Anion Gap 21 mmol/L (10-20); BUN (Urea Nitrogen) 41 mg/dL (8.4-25.7); Calc. Creatinine Clearance 39 mL/min (70-130); Calcium 8.5 mg/dL (7.8-10.44); Carbon Dioxide 15 mmol/L (23-31); Chloride 114 mmol/L (98-107); Glucose 154 mg/dL (83-110); Potassium 4.2 mmol/L (3.5-5.1); Sodium 146 mmol/L (136-145)
[2020-11-26] MEDS: Tamsulosin HCl 0.4 MG CAP PO SCH (04:17)
[2020-11-26] MEDS: Sodium Bicarbonate 50 MEQ in Dextrose 5% in Water 1,000 ML IV SCH (04:17)
[2020-11-26] MEDS: hydrALAZINE 20 MG/ML VIAL SLOW IVP PRN (05:33)
[2020-11-26 06:07] LABS: Anion Gap 13 mmol/L (10-20); BUN (Urea Nitrogen) 35 mg/dL (8.4-25.7); Calc. Creatinine Clearance 46 mL/min (70-130); Calcium 7.9 mg/dL (7.8-10.44); Carbon Dioxide 25 mmol/L (23-31); Chloride 108 mmol/L (98-107); Glucose 145 mg/dL (83-110); Potassium 3.1 mmol/L (3.5-5.1); Sodium 143 mmol/L (136-145)
[2020-11-26] MEDS ORDERED: Potassium Bicarbonate/Cit Ac 20 MEQ TAB PER TUBE SCH (07:30)
[2020-11-26] MEDS: Dextrose 5%-Lactated Ringers 1,000 ML IV SCH ×2 (09:40→19:58)
[2020-11-26] MEDS: Amlodipine 10 MG TAB PO SCH (09:42)
[2020-11-26] MEDS: Pantoprazole 40 MG VIAL IVP SCH (09:43)
[2020-11-26] MEDS: Metoprolol Tartrate 25 MG TAB PER TUBE SCH ×2 (09:43→19:58)
[2020-11-26] MEDS ORDERED: Chloraseptic Spray 180 ml Bottle PO PRN (13:36)
[2020-11-26] MEDS: Scopolamine 1.5 mg/72 hour Patch TD SCH (14:34)
[2020-11-26] MEDS: Potassium Bicarbonate/Cit Ac 20 MEQ TAB PER TUBE SCH ×2 (14:36→19:59)
[2020-11-26] MEDS: Simvastatin 10 MG TAB PO SCH (15:15)
[2020-11-27] MEDS: hydrALAZINE 20 MG/ML VIAL SLOW IVP PRN (00:44)
[2020-11-27] MEDS: Tamsulosin HCl 0.4 MG CAP PO SCH (05:43)
[2020-11-27] MEDS: Potassium Bicarbonate/Cit Ac 20 MEQ TAB PER TUBE SCH ×3 (05:43→20:45)
[2020-11-27 06:26] LABS: Albumin 2.9 g/dL (3.4-4.8); Anion Gap 15 mmol/L (10-20); BUN (Urea Nitrogen) 29 mg/dL (8.4-25.7); BUN/Creatinine Ratio 18.47; Calc. Creatinine Clearance 48 mL/min (70-130); Calcium 8.6 mg/dL (7.8-10.44); Carbon Dioxide 26 mmol/L (23-31); Chloride 110 mmol/L (98-107); Glucose 144 mg/dL (83-110); Phosphorus 3.5 mg/dL (2.3-4.7); Potassium 3.3 mmol/L (3.5-5.1); Sodium 148 mmol/L (136-145)
[2020-11-27] MEDS: Amlodipine 10 MG TAB PO SCH (09:13)
[2020-11-27] MEDS: Metoprolol Tartrate 25 MG TAB PER TUBE SCH ×2 (09:15→20:45)
[2020-11-27] MEDS: Pantoprazole 40 MG VIAL IVP SCH (09:16)
[2020-11-27] MEDS: Simvastatin 10 MG TAB PO SCH (09:33)
[2020-11-27] MEDS: Dextrose 5% in Water 1,000 ML IV SCH ×2 (10:34→15:33)
[2020-11-27] MEDS: Potassium Chloride 20 MEQ in Premix Bag 1 BAG IVPB SCH ×2 (10:46→12:53)
[2020-11-27] MEDS: Lactated Ringer's 1,000 ML IV SCH ×2 (10:47→20:46)
[2020-11-27] MEDS: Dextrose 5%-Lactated Ringers 1,000 ML IV SCH (19:39)
[2020-11-28] MEDS: Dextrose 5% in Water 1,000 ML IV SCH ×2 (05:02→09:56)
[2020-11-28] MEDS: Potassium Bicarbonate/Cit Ac 20 MEQ TAB PER TUBE SCH ×3 (05:03→20:15)
[2020-11-28] MEDS: Tamsulosin HCl 0.4 MG CAP PO SCH (05:03)
[2020-11-28 06:26] LABS: Albumin 2.8 g/dL (3.4-4.8); Anion Gap 14 mmol/L (10-20); BUN (Urea Nitrogen) 21 mg/dL (8.4-25.7); BUN/Creatinine Ratio 15.22; Calc. Creatinine Clearance 54 mL/min (70-130); Calcium 8.3 mg/dL (7.8-10.44); Carbon Dioxide 24 mmol/L (23-31); Chloride 109 mmol/L (98-107); Glucose 139 mg/dL (83-110); Potassium 3.3 mmol/L (3.5-5.1); Sodium 144 mmol/L (136-145)
[2020-11-28] MEDS ORDERED: Potassium Phosphate 30 MMOL in Sodium Chloride 0.9% 500 ML IVPB SCH (07:00)
[2020-11-28] MEDS: Lactated Ringer's 1,000 ML IV SCH ×2 (09:56→10:47)
[2020-11-28] MEDS: Simvastatin 10 MG TAB PO SCH (09:57)
[2020-11-28] MEDS: Amlodipine 10 MG TAB PO SCH (09:57)
[2020-11-28] MEDS: Metoprolol Tartrate 25 MG TAB PER TUBE SCH ×2 (09:57→20:14)
[2020-11-28] MEDS: Pantoprazole 40 MG VIAL IVP SCH (09:57)
[2020-11-28] MEDS ORDERED: Dextrose 5% in Water 1,000 ML IV SCH (10:31)
[2020-11-28] MEDS ORDERED: Colchicine 0.6 MG TAB PO SCH ×2 (10:45→18:00)
[2020-11-28] MEDS: chlorproMAZINE HCl 25 MG TAB PO PRN (20:10)
[2020-11-28] MEDS: Simethicone Chewable 80 MG TAB PO PRN (23:41)
[2020-11-29 05:39] LABS: Albumin 2.5 g/dL (3.4-4.8); Anion Gap 13 mmol/L (10-20); BUN (Urea Nitrogen) 20 mg/dL (8.4-25.7); BUN/Creatinine Ratio 13.79; Calc. Creatinine Clearance 52 mL/min (70-130); Calcium 7.9 mg/dL (7.8-10.44); Carbon Dioxide 22 mmol/L (23-31); Chloride 107 mmol/L (98-107); Glucose 110 mg/dL (83-110); Phosphorus 3.4 mg/dL (2.3-4.7); Potassium 3.9 mmol/L (3.5-5.1); Sodium 138 mmol/L (136-145)
[2020-11-29] MEDS: Potassium Bicarbonate/Cit Ac 20 MEQ TAB PER TUBE SCH (06:05)
[2020-11-29] MEDS: Tamsulosin HCl 0.4 MG CAP PO SCH (06:05)
[2020-11-29] MEDS: Lactated Ringer's 1,000 ML IV SCH (06:11)
[2020-11-29] MEDS: Simvastatin 10 MG TAB PO SCH (09:00)
[2020-11-29] MEDS: Amlodipine 10 MG TAB PO SCH (09:29)
[2020-11-29] MEDS: Potassium Bicarbonate/Cit Ac 20 MEQ TAB PO SCH (09:29)
[2020-11-29] MEDS: Metoprolol Tartrate 25 MG TAB PER TUBE SCH ×2 (09:30→20:04)
[2020-11-29] MEDS: Pantoprazole 40 MG VIAL IVP SCH (09:36)
[2020-11-29] MEDS: Scopolamine 1.5 mg/72 hour Patch TD SCH (14:00)
[2020-11-29] MEDS: Neostigmine 0.5 MG in Pre-Filled Syringe 1 EACH SC SCH (20:08)
[2020-11-30] MEDS: Neostigmine 0.5 MG in Pre-Filled Syringe 1 EACH SC SCH ×5 (02:01→23:55)
[2020-11-30] MEDS: Lactated Ringer's 1,000 ML IV SCH (05:00)
[2020-11-30 05:57] LABS: Albumin 2.6 g/dL (3.4-4.8); Anion Gap 15 mmol/L (10-20); BUN (Urea Nitrogen) 21 mg/dL (8.4-25.7); BUN/Creatinine Ratio 14.69; Calc. Creatinine Clearance 52 mL/min (70-130); Calcium 7.8 mg/dL (7.8-10.44); Carbon Dioxide 20 mmol/L (23-31); Chloride 105 mmol/L (98-107); Glucose 103 mg/dL (83-110); Potassium 3.8 mmol/L (3.5-5.1); Sodium 136 mmol/L (136-145)
[2020-11-30] MEDS: Tamsulosin HCl 0.4 MG CAP PO SCH (06:19)
[2020-11-30] MEDS: chlorproMAZINE HCl 25 MG TAB PO PRN (06:19)
[2020-11-30] MEDS: Sodium Bicarbonate Tab 325 MG TAB PO SCH ×2 (08:38→21:00)
[2020-11-30] MEDS: Pantoprazole 40 MG VIAL IVP SCH (08:39)
[2020-11-30] MEDS: Simvastatin 10 MG TAB PO SCH (08:39)
[2020-11-30] MEDS: Amlodipine 10 MG TAB PO SCH (08:39)
[2020-11-30] MEDS: Metoprolol Tartrate 25 MG TAB PER TUBE SCH ×2 (08:39→21:00)
[2020-11-30] MEDS ORDERED: Magnesium 2 GM/50 ML 2 GM in Premix Bag 1 BAG IVPB SCH (11:30)
[2020-11-30] MEDS: Potassium Bicarbonate/Cit Ac 20 MEQ TAB PO SCH (11:58)
[2020-11-30] MEDS ORDERED: Indomethacin 25 mg Capsule PO SCH (12:00)
[2020-11-30] MEDS ORDERED: Acetaminophen/Codeine 30-300mg Tablet PO PRN ×2 (13:14→13:15)
[2020-11-30] MEDS: Colchicine 0.3 MG TAB PO SCH (21:00)
[2020-12-01] MEDS: Tamsulosin HCl 0.4 MG CAP PO SCH (06:00)
[2020-12-01] MEDS: Neostigmine 0.5 MG in Pre-Filled Syringe 1 EACH SC SCH (06:00)
[2020-12-01 06:01] LABS: Albumin 2.6 g/dL (3.4-4.8); Anion Gap 14 mmol/L (10-20); BUN (Urea Nitrogen) 20 mg/dL (8.4-25.7); BUN/Creatinine Ratio 11.63; Calc. Creatinine Clearance 44 mL/min (70-130); Calcium 7.8 mg/dL (7.8-10.44); Carbon Dioxide 22 mmol/L (23-31); Chloride 106 mmol/L (98-107); Glucose 135 mg/dL (83-110); Potassium 3.7 mmol/L (3.5-5.1); Sodium 138 mmol/L (136-145)
[2020-12-01] MEDS: Potassium Bicarbonate/Cit Ac 20 MEQ TAB PO SCH (09:23)
[2020-12-01] MEDS: Amlodipine 10 MG TAB PO SCH (09:24)
[2020-12-01] MEDS: Sodium Bicarbonate Tab 325 MG TAB PO SCH (09:24)
[2020-12-01] MEDS: Colchicine 0.3 MG TAB PO SCH (09:24)
[2020-12-01] MEDS: Metoprolol Tartrate 25 MG TAB PER TUBE SCH (09:24)
[2020-12-01] MEDS: Simvastatin 10 MG TAB PO SCH (09:24)
[2020-12-01] MEDS: Pantoprazole 40 MG VIAL IVP SCH (09:25)
[2020-12-01] MEDS: Albumin 25% 25 GM/100 ML BOT IVPB SCH ×2 (09:36→13:24)
[2020-12-01 12:42] VITALS: BP 118/63; TEMP 98.7
== END 2020-12-01 14:55 | DRG 519 ==
LOC: SDC 05:50 → SJJU 14:00
PROVIDERS: ADMIT Neurological Surgery; ATTEND Neurological Surgery
PROC: 01NB0ZZ Release Lumbar Nerve, Open Approach (ICD-10-PCS; principal; 2020-11-20)
PROC: 00UT0KZ Supplement Spinal Meninges with Nonautologous Tissue Substitute, Open Approach (ICD-10-PCS; 2020-11-20)
PROC: 0D9670Z Drainage of Stomach with Drainage Device, Via Natural or Artificial Opening (ICD-10-PCS; 2020-11-21)
DX: M48.062 Spinal stenosis, lumbar region with neurogenic claudication (principal); N17.9 Acute kidney failure, unspecified; E87.0 Hyperosmolality and hypernatremia; E87.2 Acidosis; K56.0 Paralytic ileus; K21.9 Gastro-esophageal reflux disease without esophagitis; I12.9 Hypertensive chronic kidney disease with stage 1 through stage 4 chronic kidney disease, or unspecified chronic kidney disease; G96.198 Other disorders of meninges, not elsewhere classified; E78.5 Hyperlipidemia, unspecified; G89.29 Other chronic pain; N40.0 Benign prostatic hyperplasia without lower urinary tract symptoms; F17.220 Nicotine dependence, chewing tobacco, uncomplicated; N18.30 Chronic kidney disease, stage 3 unspecified; D63.1 Anemia in chronic kidney disease; M10.9 Gout, unspecified; E86.9 Volume depletion, unspecified; R80.9 Proteinuria, unspecified; E87.6 Hypokalemia; E83.39 Other disorders of phosphorus metabolism; R06.6 Hiccough; Z98.890 Other specified postprocedural states; Z86.010 Personal history of colon polyps; Z87.442 Personal history of urinary calculi; Z79.899 Other long term (current) drug therapy; Z82.3 Family history of stroke; Z82.49 Family history of ischemic heart disease and other diseases of the circulatory system; Z98.1 Arthrodesis status; Z90.49 Acquired absence of other specified parts of digestive tract
CPT/HCPCS: 36415; 71046; 74019; 74022; 74177; 74250; 76000; 76770; 80048; 80069; 81001; 82040; 82570; 83735; 84100; 84156; 84300; 84540; 85025; 87086; 93970; C9113; J0171; J0360; J0690; J1100; J1200; J2212; J2270; J2405; J2550; J2704; J2710; J2765; J3010; J3370; J3475; J3480; J7030; J7050; J7070; P9047; Q0161; Q0163; Q0169; Q9967; S0020